=== PATIENT | male | born 1975 | race Caucasian/White ===

== ENCOUNTER 2016-10-08 18:08 | Emergency (ER) | payer SELFPAY ==
[~2016-10-08] VITALS: Wt 72.5 kg
[2016-10-08] MEDS ORDERED: ASPIRIN 325 MG TAB PO STA (18:46)
--- NOTE | 2016-10-08 18:51 | ERD ---
ER Documentation Chief Complaint Date/Time DATE: 10/08/16 TIME: 18:47 Chief Complaint CHEST PAIN FOR THE PAST YEAR BUT MORE CONSTANT THE LAST 8 HRS. NAUSEA HPI This is a 41-year-old male with no past medical history that presents to the emergency department complaining of intermittent chest pain for over one year. The patient indicates that he will have multiple similar episodes of this chest discomfort several times a week. Indicates that the pain is midsternal sharp in nature and will sometimes radiate to his left arm but states there is no radiation to his back neck or jaw. He states the pain is exacerbated with movement. He denies any associated symptoms of nausea vomiting or diaphoresis. The patient smokes tobacco roughly 4 cigarettes a week. He states he has no family history of coronary artery disease in his first-degree relatives. He states the pain is 4 out of 10 in intensity. He does take aspirin whenever he develops this pain. He indicates the pain will last for roughly 5 minutes and then spontaneously resolve. He indicates he came to the emergency department today as the pain lasted longer than it normally does and has been present for over 8 hours prior to arrival. He indicated 3 years ago he had similar episodes of this chest pain and was evaluated at [facility]. ROS All systems reviewed and are negative except as per history of present illness. Physical Exam Vitals Vital Signs Date Time Temp Pulse Resp B/P Pulse Ox O2 Delivery O2 Flow Rate FiO2 10/08/16 18:16 98.5 108 22 142/78 98 Physical Exam Constitutional:Well-developed. Well-nourished. HEENT:Normocephalic. Atraumatic.Pupils were equal round reactive to light. Moist mucous membranes.No tonsillar exudates. Neck: No nuchal rigidity. No lymphadenopathy. No posterior cervical spine tenderness or step-offs. No JVD Respiratory: Not using accessory muscles of respiration.Lungs were clear to auscultation bilaterally. No rhonchi. No rales. No wheezing. Cardiovascular: Regular rate regular rhythm.No murmurs. No rubs were appreciated.S1, S2 normal. Distal pulses are palpable 2+ bilaterally. Mid substernal reproducible chest wall tenderness with no crepitus no ecchymosis no flail chest. GI: Abdomen was soft. Nontender. Non Distended. No pulsatile abdominal masses or bruits. No rebound. No guarding. Bowel sounds were present and normal. Muscle skeletal: Full range of motion of both the upper and lower extremities bilaterally.Normal muscle tone.No assymetrical calf tenderness or swelling. Skin: No petechia, no purpura. No lesions on the palms or the soles of the feet. No maculopapular rash. NEURO: Patient was alert, awake, orientated x3.No facial droop. Gait observed and normal with no ataxia.Speech had regular rate and rhythm. No focal neurological deficits. Procedures/MDM The patient presented to the emergency department complaining of chest pain. My clinical evaluation and workup was to distinguish minor causes of chest pain from acute life threatening cardiopulmonary causes such as myocardial infarction , pulmonary embolism, aortic dissection, esophageal rupture, cardiac tamponade, The patient was placed on a reimbursement representative, continuous pulse oximetry and IV access established by nursing staff. Patient received aspirin and Toradol. 12 Lead EKG tracing ordered and reviewed by myself showed: Normal sinus rhythm of 98 bpm and no arrhythmia. MA interval normal. QRS duration normal. No ST segment elevation No ST segment depression. No changes consistent with acute ischemia. The patients chest pain was reproduced by palpation and horizontal flexion of the arms. It was my clinical impression that the pain was a result of inflammation of the skin and subcutaneous structures of the chest wall versus myocardial ischemia. I felt the patient had low-risk chest pain and could therefore be safely discharged with close follow-up. The patient has no cardiac risk factors and no strong family history of coronary artery disease. However I did indicate to the patient that he would benefit from an outpatient cardiology evaluation. The patient was discharged home in fair condition. They were instructed to return to the emergency department at any time if there was any worsening of their condition. The patient stated they would follow up with their PCP in the next 24-48 hours to initiate a suitable medication regimen under the care of their PCP as well as to allow their PCP to monitor any drug reactions. The patient was discharged home with prescriptions after they gave informed consent to the new medication. They were also fully informed by myself on the adverse effects and adverse drug interactions in order to provide adequate safeguards to prevent possible adverse reactions to medications. Departure Diagnosis: Primary Impression: Costochondritis Condition: Lora GUALBERTO VILLEDA October 08, 2016 18:51
[2016-10-08] MEDS ORDERED: KETOROLAC 30 MG INJ IV STA (18:52)
--- NOTE | 2016-10-08 19:11 | RADRPT ---
PROCEDURE: Chest x-ray CLINICAL INDICATION: Chest pain TECHNIQUE: Chest single view COMPARISON: None FINDINGS: The heart is normal in size. The pulmonary vessels are normal in caliber. The lungs are clear. Th e costophrenic angles are sharp. The visualized bony thorax is unremarkable. IMPRESSION: No acute cardiopulmonary disease. RPTAT: HH .Timmy Shields MD, Date Time Electronically viewed and signed by .Timmy Shields MD, MD on 10/08/2016 19:11 .W/
[2016-10-08 19:13] LABS: ADD SCAN DIFF NO
[2016-10-08 19:14] LABS: BASOPHIL # 0.1 10^3/ul (0.0-0.1); BASOPHILS % 0.7 % (0.0-2.0); EOSINOPHILS # 0.3 10^3/ul (0.0-0.5); EOSINOPHILS % 4.5 % (0.0-7.0); HEMATOCRIT 47.7 % (42.0-52.0); HEMOGLOBIN 16.1 g/dl (14.0-18.0); LYMPHOCYTES # 2.4 10^3/ul (0.8-2.9); MEAN CORPUSCULAR HEMOGLOBIN 27.3 pg (29.0-33.0); MEAN CORPUSCULAR HGB CONC 33.8 g/dl (32.0-37.0); MONOCYTE # 0.6 10^3/ul (0.3-0.9); MONOCYTES % 8.1 % (0.0-11.0); NEUTROPHIL # 4.2 10^3/ul (1.6-7.5); NEUTROPHILS % 54.6 % (39.0-77.0); PLATELET COUNT 258 10^3/UL (140-415); RED BLOOD COUNT 5.89 10^6/ul (4.70-6.10); RED CELL DISTRIBUTION WIDTH 13.3 % (11.5-14.5); WHITE BLOOD COUNT 7.6 10^3/ul (4.8-10.8)
[2016-10-08 19:31] LABS: ALANINE AMINOTRANSFERASE 30 IU/L (13-69); ALBUMIN 4.2 g/dl (3.3-4.9); ALBUMIN/GLOBULIN RATIO 1.31; ALKALINE PHOSPHATASE 78 IU/L (42-121); ANION GAP 10 (8-16); ASPARTATE AMINO TRANSFERASE 22 IU/L (15-46); BILIRUBIN,INDIRECT 0.7 mg/dl (0-1.1); BILIRUBIN,TOTAL 0.7 mg/dl (0.2-1.3); BLOOD UREA NITROGEN 12 mg/dl (7-20); CALCIUM 9.5 mg/dl (8.4-10.2); CARBON DIOXIDE 29 mmol/L (21-31); CHLORIDE 103 mmol/L (97-110); CREATINE KINASE 96 IU/L (23-200); CREATININE 1.06 mg/dl (0.61-1.24); GLUCOSE 116 mg/dl (70-220); POTASSIUM 3.8 mmol/L (3.5-5.1); SODIUM 138 mmol/L (135-144); TOTAL PROTEIN 7.4 g/dl (6.1-8.1)
[2016-10-08 19:32] LABS: PARTIAL THROMBOPLASTIN TIME 26.7 Sec (25.0-35.0)
[2016-10-08 19:36] LABS: INR 0.91; PROTIME 12.3 Sec (12.2-14.2)
[2016-10-08 19:44] LABS: B-TYPE NATRIURETIC PEPTIDE 38 PG/ML (0-125)
[2016-10-08 19:48] LABS: CK-MB 0.57 ng/ml (0.0-2.4); TROPONIN-I < 0.012 ng/ml (0.00-0.12)
[2016-10-08] MEDS ORDERED: NAPR-260 PO (20:02)
[2016-10-08 20:18] VITALS: BP 117/95; PULSE 71; RESP 22; TEMP 98.5
== END 2016-10-08 20:18 | disposition home or self-care (01) ==
LOC: E/R 18:08
DX: M94.0 Chondrocostal junction syndrome [Tietze] (principal); F17.210 Nicotine dependence, cigarettes, uncomplicated
CPT/HCPCS: 71010; 80053; 82550; 82553; 83880; 84484; 85025; 85610; 85730; 93005; 96374; 99285; J1885